=== PATIENT | female | born 1970 | race Caucasian/White ===

== ENCOUNTER 2020-08-10 17:50 | Emergency (ER) | payer BC ==
--- NOTE | 2020-08-10 18:07 | ED ---
General Adult HPI - General Chief complaint: Urogenital Stated complaint: Dysuria Time Seen by Provider: 08/10/20 17:58 Source: patient, RN notes reviewed Mode of arrival: ambulatory Limitations: no limitations - History of Present Illness Initial comments: Patient is a pleasant 49-year-old female presenting to the emergency Department with dysuria. Onset of symptoms was a few hours ago. Patient has had symptoms the last 2 times she has urinated, especially at the end of her strained. Patient does have a little bit of urgency and frequency. Patient does have some mild pressure in the suprapubic region. Patient states she has not had a urinary tract infection in many many years and is unclear if this feels similar to that. No back pain. No fever or vomiting. - Related Data Home Medications Medication Instructions Recorded Confirmed Loratadine [Claritin] 10 mg PO DAILY PRN 08/10/20 08/10/20 Omeprazole Magnesium [PriLOSEC OTC] 20 mg PO DAILY 08/10/20 08/10/20 Previous Rx's Medication Instructions Recorded Phenazopyridine [Pyridium] 200 mg PO TID #6 tablet 08/10/20 Sulfamethox-Tmp 800-160Mg [Bactrim 1 each PO Q12HR #18 tab 08/10/20 DS 800-160 mg] Allergies Allergy/AdvReac Type Severity Reaction Status Date / Time Penicillins Allergy Rash/Hives Verified 08/10/20 18:21 Review of Systems ROS Statement: Those systems with pertinent positive or pertinent negative responses have been documented in the HPI. ROS Other: All systems not noted in ROS Statement are negative. Constitutional: Denies: fever Eyes: Denies: eye pain ENT: Denies: ear pain Respiratory: Denies: cough Cardiovascular: Denies: chest pain Endocrine: Denies: fatigue Gastrointestinal: Reports: as per HPI. Denies: nausea, vomiting Genitourinary: Reports: urgency, dysuria, hematuria Musculoskeletal: Denies: back pain Skin: Denies: rash Neurological: Denies: weakness Past Medical History Additional Past Medical History / Comment(s): back pain, arthritis History of Any Multi-Drug Resistant Organisms: None Reported Additional Past Surgical History / Comment(s): neck surgery Past Psychological History: No Psychological Hx Reported Smoking Status: Current every day smoker Past Alcohol Use History: None Reported Past Drug Use History: None Reported General Exam Limitations: no limitations General appearance: alert, in no apparent distress Head exam: Present: normocephalic Eye exam: Present: normal appearance Neck exam: Present: normal inspection Respiratory exam: Present: normal lung sounds bilaterally Cardiovascular Exam: Present: regular rate, normal rhythm Expanded Peripheral pulses: 2+: Posterior Tibialis (R), Posterior Tibialis (L) GI/Abdominal exam: Present: soft. Absent: distended, tenderness, guarding, rebound, rigid, pulsatile mass Extremities exam: Present: normal inspection Back exam: Present: normal inspection. Absent: tenderness Neurological exam: Present: alert Psychiatric exam: Present: normal affect, normal mood Skin exam: Present: normal color Course Vital Signs 08/10/20 08/10/20 17:51 18:21 Temperature 98.0 F Pulse Rate 105 H 102 H Respiratory 16 18 Rate Blood Pressure 163/112 146/99 O2 Sat by Pulse 96 97 Oximetry Medical Decision Making - Medical Decision Making Patient reevaluated and updated - Lab Data Lab Results 08/10/20 Range/Units 18:24 Urine Color Light Red Urine Appearance Cloudy H (Clear) Urine pH 6.5 (5.0-8.0) Ur Specific [place] 1.010 (1.001-1.035) Urine Protein 2+ H (Negative) Urine Glucose (UA) Negative (Negative) Urine Ketones Negative (Negative) Urine Blood Large H (Negative) Urine Nitrite Negative (Negative) Urine Bilirubin Negative (Negative) Urine Urobilinogen <2.0 (<2.0) mg/dL Ur Leukocyte Esterase Large H (Negative) Urine RBC >182 H (0-5) /hpf Urine WBC >182 H (0-5) /hpf Ur Squamous Epith Cells 1 (0-4) /hpf Urine Bacteria Rare H (None) /hpf Disposition Clinical Impression: Urinary tract infection Disposition: HOME SELF-CARE Condition: Stable Instructions (If sedation given, give patient instructions): Urinary Tract Infection in Women (ED) Additional Instructions: Please do follow-up to primary care physician in the next couple days for recheck. Return for vomiting, fevers, worsening or changing symptoms or other concerns. [facility] [place] [facility] Prescriptions: Sulfamethox-Tmp 800-160Mg [Bactrim DS 800-160 mg] 1 each PO Q12HR #18 tab Phenazopyridine [Pyridium] 200 mg PO TID #6 tablet Is patient prescribed a controlled substance at d/c from ED?: No Referrals: Steven Escobedo MD [Primary Care Provider] - 1-2 days Time of Disposition: 19:48
[2020-08-10 18:22] VITALS: RESP 18
[2020-08-10] MEDS ORDERED: LORazepam 1 MG TAB PO STA (18:59)
[2020-08-10 19:14] LABS: Appearance,Urine Cloudy (Clear); Bacteria,Urine Rare /hpf; Bilirubin,Urine Negative (Negative); Blood,Urine Large (Negative); Color,Urine Light Red; Glucose,Urine (UA) Negative (Negative); Ketones,Urine Negative (Negative); Leukocyte Esterase,Urine Large (Negative); Nitrite,Urine Negative (Negative); PH, Urine 6.5 (5.0-8.0); Protein,Urine 2+ (Negative); RBC,Urine >182 /hpf (0-5); Squamous Epithelial Cell,Urine 1 /hpf (0-4); Urobilinogen,Urine <2.0 mg/dL (<2.0); WBC,Urine >182 /hpf (0-5)
[2020-08-10] MEDS ORDERED: SULFAMETH-TMP DS STARTER PACK 2 TAB BTL PO STA (19:47)
[2020-08-10] MEDS ORDERED: PHENAZOPYRIDINE 200 MG TAB PO STA (19:47)
[2020-08-10 20:15] VITALS: BP 136/94; PULSE 88; TEMP 98.3
== END 2020-08-10 20:15 | disposition home or self-care (01) ==
LOC: EC 17:50
DX: N39.0 Urinary tract infection, site not specified (principal); F17.200 Nicotine dependence, unspecified, uncomplicated; Z88.0 Allergy status to penicillin; Z79.899 Other long term (current) drug therapy
CPT/HCPCS: 81001; 87086; 99283